=== PATIENT | female | born 2005 | race Caucasian/White ===

== ENCOUNTER 2024-09-07 14:20 | Outpatient (CLI) | payer OTHER, MEDICAID, SELFPAY | END 2024-09-07 14:21 | disposition home or self-care (01) | PROVIDERS: PCP Physician Assistant Medical; Visit Provider Physician Assistant Medical | DX: R03.0 Elevated blood-pressure reading, without diagnosis of hypertension (principal); E66.9 Obesity, unspecified; R63.4 Abnormal weight loss; L70.9 Acne, unspecified | CPT/HCPCS: 82088; 83835; 84244; 87086 ==

== ENCOUNTER 2024-11-15 08:14 | Outpatient (CLI) | payer OTHER, MEDICAID, SELFPAY | END 2024-11-15 08:15 | disposition home or self-care (01) | LOC: NFLDREF 11-20 02:54 | PROVIDERS: PCP Physician Assistant Medical; Referring Provider Physician Assistant Medical; Visit Provider Internal Medicine Nephrology | DX: I10 Essential (primary) hypertension (principal); R79.89 Other specified abnormal findings of blood chemistry | CPT/HCPCS: 80069; 82043; 82088; 82570; 84244; 87086 ==

== ENCOUNTER 2024-11-20 06:56 | Outpatient (CLI) | payer OTHER, SELFPAY ==
--- NOTE | 2024-11-20 07:15 | CRLHL7_ITS ---
For Patients: As a result of the Century Cures Act, medical imaging exams and procedure reports are released immediately into your electronic medical record. You may view this report before your referring provider. If you have questions, please contact your health care provider. INDICATION: Essential primary HTN TECHNIQUE: Grayscale, color Doppler and power Doppler ultrasound of the renal arteries performed bilaterally. COMPARISON: None available FINDINGS: BILATERAL RENAL ARTERY DUPLEX ULTRASOUND ABDOMINAL AORTA: Peak systolic velocity = 225 cm/s. No aortic aneurysm. RIGHT KIDNEY: 9.9 cm in length. There is no hydronephrosis. Peak systolic velocity = 42 cm/second Renal artery to aortic peak systolic velocity ratio = 0.19 Resistive indices: 0.63 Renal vein = patent LEFT KIDNEY: 10.9 cm in length. There is no hydronephrosis. Peak systolic velocity = 39 cm/second Renal artery to aortic peak systolic velocity ratio = 0.17 Resistive indices: 0.66 Renal vein = patent IMPRESSION: No evidence of significant renal artery stenosis. Elevated peak systolic velocity in the aorta consistent with the history of hypertension. Dictated by Saroj Ang MD @ 11/20/2024 11:03:07 AM (Electronically Signed)
== END 2024-11-20 06:57 | disposition home or self-care (01) ==
PROVIDERS: PCP Physician Assistant Medical; Visit Provider Internal Medicine Nephrology
DX: I10 Essential (primary) hypertension (principal)
CPT/HCPCS: 76775; 93975